=== PATIENT | female | born 1955 | race African-American/Black ===

== ENCOUNTER → 2016-08-31 | Outpatient (CLI) | payer MEDICARE ==
[~2016-08-31] VITALS: Ht 154.9 cm; Wt 56.0 kg
[~2016-08-31] MED LIST: BONINE25 MG PO; CALCIUM 500 MG1 EACH PO; DAILY VITE1 EAC1 PO; HYZAAR 100-11 TABLET PO; OMEGA 3 500 SO1 EACH PO; SUPER CALCIUM600 MG PO; TOPROL XL100 MG PO; VITAMIN D31000 UNIT PO
[2016-08-31 16:09] VITALS: BP 121/74
== END | disposition home or self-care (01) ==
LOC: IVINF 08-24 15:00
DX: M81.0 Age-related osteoporosis without current pathological fracture (principal)
CPT/HCPCS: 96365; J3489

== ENCOUNTER → 2017-10-11 | Outpatient (CLI) | payer MEDICARE ==
[~2017-10-11] VITALS: Ht 154.9 cm; Wt 58.2 kg
[2017-10-11 09:54] VITALS: BP 155/75
== END | disposition home or self-care (01) ==
LOC: IVINF 09:05
DX: M81.0 Age-related osteoporosis without current pathological fracture (principal)
CPT/HCPCS: 96365; J3489